=== PATIENT | male | born 1970 | race Caucasian/White ===

== ENCOUNTER 2020-09-25 14:10 | Emergency (ER) | payer SELFPAY ==
[~2020-09-25] VITALS: Ht 175.3 cm; Wt 77.1 kg
[2020-09-25] MEDS ORDERED: HYDROCODON-ACE1 EA10 PO (14:59)
== END 2020-09-25 15:05 | disposition home or self-care (01) ==
LOC: ED 14:10
DX: S89.102A Unspecified physeal fracture of lower end of left tibia, initial encounter for closed fracture (principal); S82.832A Other fracture of upper and lower end of left fibula, initial encounter for closed fracture; V86.92XA Unspecified occupant of snowmobile injured in nontraffic accident, initial encounter
CPT/HCPCS: 29515; 73590; 99283-25; J1885; J2270